=== PATIENT | female | born 1935 | race Caucasian/White ===

== ENCOUNTER 2020-05-03 13:54 | Outpatient (REF) | payer MEDICARE, SELFPAY ==
[2020-05-03 15:13] LABS: Alanine Aminotransferase 11 U/L (0-31); Anion Gap 15 (12-20); Blood Urea Nitrogen 27 mg/dL (9-16); Carbon Dioxide 27 mmol/L (22-29); Chloride 104 mmol/L (96-108); Estimated Glomerular Filt Rate 49; Potassium 3.9 mmol/L (3.3-5.1); Sodium 142 mmol/L (135-145)
== END 2020-05-03 13:55 | disposition home or self-care (01) ==
LOC: HO.10HDL 13:54
PROVIDERS: Visit Provider Family Medicine
DX: I10 Essential (primary) hypertension (principal); E78.00 Pure hypercholesterolemia, unspecified; Z79.899 Other long term (current) drug therapy
CPT/HCPCS: 36415; 80051; 82550; 82565; 84460; 84520

== ENCOUNTER 2021-11-09 12:51 | Outpatient (REF) | payer MEDICARE, SELFPAY ==
[2021-11-09 14:31] LABS: Alanine Aminotransferase 11 U/L (0-31); Anion Gap 14 (12-20); Aspartate Amino Transferase 16 U/L (5-31); Blood Urea Nitrogen 18 mg/dL (9-16); Carbon Dioxide 29 mmol/L (22-29); Chloride 103 mmol/L (96-108); Estimated Glomerular Filt Rate 51; Potassium 3.9 mmol/L (3.3-5.1); Sodium 142 mmol/L (135-145)
[2021-11-15 09:17] LABS: Transglutaminase Ab IgG <1.0 U/mL; Transglutaminase IgA <1.0 U/mL
== END 2021-11-09 12:52 | disposition home or self-care (01) ==
LOC: HO.10HDL 12:51
PROVIDERS: Visit Provider Family Medicine
DX: I10 Essential (primary) hypertension (principal); E78.00 Pure hypercholesterolemia, unspecified; Z79.899 Other long term (current) drug therapy; Z83.79 Family history of other diseases of the digestive system
CPT/HCPCS: 36415; 80051; 82550; 82565; 84450; 84460; 84520; 86364

== ENCOUNTER → 2022-03-22 13:21 | Outpatient (REF) | payer MEDICARE, SELFPAY ==
--- NOTE | 2022-03-22 13:39 | CA_ITS ---
Transthoracic Echocardiogram Patient (Last, First, Middle): Kaylah Mccabe E Gender: Female Date of : 1935 Age: 86 Procedure Date: 03/22/2022 Procedure Type: Transthoracic Echocardiogram Location: OP Height: 162.56 cm Weight: 58.97 kg BSA: 1.63 m2 Heart Rate: 69 bpm Load Out Supervisor: MIMI Referring MD: Skyler Quintero MD Risk Adjustment Specialist: Chas Burnette MD Symptoms: MURMUR VENT PREMATURE DEPOLARIZATION Study Quality: Adequate ECG Rhythm: Sinus Conclusions: - 1. Normal LV systolic function with grade 1 diastolic dysfunction 2. Normal cardiac valvular Dopplers 3. Upper limits normal RV systolic pressure 4. No gross pericardial effusion Findings Left Ventricle Normal left ventricular size, thickness, and systolic function. The visually estimated ejection fraction is between 55-60%. Regional wall motion abnormalities can not be excluded due to suboptimal endocardial definition. Spectral Doppler is indicative of an impaired relaxation filling pattern. E/E prime ratio is <8, consistent with normal filling pressures. Evidence suggests grade I (mild) diastolic dysfunction. Right Ventricle Normal right ventricular cavity size and systolic function. Atria The left atrium is normal in size. There is lipomatous hypertrophy of the interatrial septum. There is a mobile atrial septum noted. There is no evidence of interatrial shunt. The right atrium is normal in size. Aortic Valve The aortic valve structure and function is likely normal. There is no aortic valve stenosis. There is no aortic valve regurgitation. Mitral Valve Likely normal mitral valve structure and function. There is trace mitral valve regurgitation. There is no mitral valve stenosis. Pulmonic Valve The pulmonic valve was not well visualized. Tricuspid Valve Likely normal tricuspid valve structure and function. There is mild tricuspid valve regurgitation. There is no evidence of pulmonary hypertension. Great Vessels The aorta was not well visualized. The pulmonary artery was not well visualized. Venous The inferior vena cava is normal in size and collapses greater than 50% with inspiration. Pericardium/Pleural There is no evidence of pericardial effusion. Prior Study Comparison No prior study available for comparison. Measurements 2D Linear Measurements IVSd: 0.78 0.6-0.9/0.6-1.0 cm LVIDd: 3.36 3.9-5.3/4.2-5.9 cm LVIDd Index: 2.06 2.4-3.2/2.2-3.1 cm/m2 LVIDs: 2.12 2.0-3.6 cm LVPWd: 0.64 0.7-1.1 cm LA Diam: 3.40 2.7-3.8/3.0-4.0 cm LAIDs Index: 2.09 1.5-2.3 cm/m2 LV Mass: 73.99 67-162/88-224 g LV Mass Index: 45.39 43-95/49-115 g/m2 LVOT Diam: 1.90 3.0+(-)1.3 cm 2D Systolic Function EF 4C: 53.90 >55% EF 2C: 53.00 >55% Mitral Valve MV Pk E: 0.62 MV PK A: 1.02 MV Decel Time: 266.00 E/A: 0.60 E'Lateral: 5.00 E'Medial: 3.59 E/E' Med: 17.30 E/E' Lat: 12.40 PHT: 78.00 MVA PHT: 2.82 Decel Callahan: 2.34 Aortic Valve AoV Pk Matthew: 1.29 AoV Pk Grad: 7.00 MARLIN: 2.55 LVOT LVOT Pk Matthew: 1.16 LVOT Mn Matthew: 0.78 LVOT VTI: 0.22 LVOT Pk Grad: 5.00 LVOT Mn Grad: 3.00 LVOT Diam: 1.90 LVOT Area: 2.84 Diastolic Function MV Pk E: 0.62 MV Pk A: 1.02 E/A: 0.60 E'Medial: 3.59 E/E' Med: 17.30 E' Laterial: 5.00 E/E' Lat: 12.40 Right Ventricle TAPSE (mm): 21.10 TVS' Matthew: 11.60 Tricuspid Valve TR Pk Matthew: 2.91 TR Pk Grad: 34.00 RA Press: 3.00 RVSP: 37.00 Great Vessels Aorta Sinus of Valsalva: 3.20 2.0-3.5 cm Ao Asc: 3.10 2.1-3.4 cm Pulmonary Valve PV Pk Matthew: 0.98 Peak PV Grad: 4.00 Updated in Other Vendor System with Status of Final Chas Burnette MD electronically signed on 03/22/2022 5:04:50 PM with status of Final
== END ==
LOC: HO.CARD 13:21
PROVIDERS: PCP Family Medicine; Visit Provider Family Medicine
DX: I49.3 Ventricular premature depolarization (principal); R01.1 Cardiac murmur, unspecified
CPT/HCPCS: 93306

== ENCOUNTER 2022-09-19 13:44 | Outpatient (REF) | payer MEDICARE, SELFPAY ==
[2022-09-19 16:14] LABS: Alanine Aminotransferase 11 U/L (0-31); Anion Gap 15 (12-20); Aspartate Amino Transferase 17 U/L (5-31); Carbon Dioxide 25 mmol/L (22-29); Chloride 105 mmol/L (96-108); Estimated Glomerular Filt Rate 50; Potassium 3.8 mmol/L (3.3-5.1); Sodium 141 mmol/L (135-145)
== END 2022-09-19 13:45 | disposition home or self-care (01) ==
LOC: HO.LAB 13:44
PROVIDERS: PCP Family Medicine; Visit Provider Family Medicine
DX: I10 Essential (primary) hypertension (principal); E78.00 Pure hypercholesterolemia, unspecified; Z79.899 Other long term (current) drug therapy
CPT/HCPCS: 36415; 80051; 82550; 82565; 84450; 84460

== ENCOUNTER 2023-05-09 12:36 | Outpatient (REF) | payer MEDICARE, SELFPAY ==
[2023-05-09 13:35] LABS: Alanine Aminotransferase 9 U/L (0-31); Anion Gap 13 (12-20); Aspartate Amino Transferase 14 U/L (5-31); Blood Urea Nitrogen 16 mg/dL (9-16); Carbon Dioxide 31 mmol/L (22-29); Chloride 104 mmol/L (96-108); Estimated Glomerular Filt Rate 51; Potassium 4.2 mmol/L (3.3-5.1); Sodium 144 mmol/L (135-145)
== END 2023-05-09 12:37 | disposition home or self-care (01) ==
LOC: HO.10HDL 12:36
PROVIDERS: Visit Provider Family Medicine
DX: I10 Essential (primary) hypertension (principal); E78.00 Pure hypercholesterolemia, unspecified; Z79.899 Other long term (current) drug therapy
CPT/HCPCS: 36415; 80051; 82550; 82565; 84450; 84460; 84520

== ENCOUNTER 2024-02-10 12:45 | Outpatient (REF) | payer MEDICARE, SELFPAY ==
[2024-02-10 14:37] LABS: Alanine Aminotransferase 13 U/L (0-31); Anion Gap 10 (12-20); Aspartate Amino Transferase 22 U/L (5-31); Blood Urea Nitrogen 22 mg/dL (9-16); Carbon Dioxide 30 mmol/L (22-29); Chloride 106 mmol/L (96-108); Estimated Glomerular Filt Rate 45; Potassium 4.2 mmol/L (3.3-5.1); Sodium 142 mmol/L (135-145)
== END 2024-02-10 12:46 | disposition home or self-care (01) ==
LOC: HO.LAB 12:45
PROVIDERS: PCP Family Medicine; Visit Provider Family Medicine
DX: I10 Essential (primary) hypertension (principal); E78.00 Pure hypercholesterolemia, unspecified; Z79.899 Other long term (current) drug therapy
CPT/HCPCS: 36415; 80051; 82550; 82565; 84450; 84460; 84520

== ENCOUNTER 2024-04-08 14:17 | Inpatient (IN) | payer MEDICARE, SELFPAY ==
--- NOTE | ~2024-04-08 | FL_ITS ---
EXAMINATION: FLUOROSCOPY GUIDANCE FOR NEEDLE PLACEMENT CLINICAL INFORMATION: right femoral IM nail retrograde COMPARISON: CT right femur 04/08/2024 TECHNIQUE: Fluoroscopy guidance was performed in the OR with 7 images obtained. 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 The oblique fracture mid to distal femur has been stabilized with lateral plate and screws. The fracture fragments are in alignment. 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 Stabilized mid to distal right oblique fracture with lateral metallic plate and screws in alignment. Electronically signed by: Silvestre Rogers MD 04/10/2024 07:06 AM [facility]
--- NOTE | ~2024-04-08 | CT_ITS ---
EXAMINATION: CT HEAD WITHOUT IV CONTRAST HISTORY: Fall. TECHNIQUE: Unenhanced helical CT of the head was performed per standard departmental protocol. Coronal and sagittal reformats of the head were also evaluated. One or more of the following techniques was used for dose reduction: Automated exposure control, adjustment of the mA and/or kV according to patient size, use of iterative reconstruction technique. DLP: 712.60 mGy-cm COMPARISON: There are no prior studies for comparison. FINDINGS: BRAIN: There is mild prominence of the ventricular system and cortical sulci, consistent with atrophy. Periventricular and subcortical white matter hypodensities are noted which are nonspecific, but often seen in the setting of small vessel ischemic disease. There is no mass effect or midline shift. No intra- or extra-axial fluid collections are identified. SINUSES: The visualized paranasal sinuses are clear. The mastoid air cells and middle ear cavities are well pneumatized. ORBITS: The visualized orbits are unremarkable. BONES/SOFT TISSUES: There is a right parietal scalp hematoma. The calvarium is intact. No suspicious lytic or sclerotic lesions. CT/CT head/brain wo IV con IMPRESSION: Right parietal scalp hematoma. No evidence of intracranial hemorrhage. Electronically signed by: Max Hurtado MD 04/08/2024 03:32 PM [facility]
--- NOTE | ~2024-04-08 | XR_ITS ---
EXAMINATION: XR KNEE 1-2 VIEWS RIGHT HISTORY: Pain, Cannot straighten, dislocation vs femur fx COMPARISON: There are no prior studies available for comparison. FINDINGS: A single lateral view of the right knee is submitted. Osseous mineralization is normal. There is a lucency in the distal femoral metaphysis which may represent a nondisplaced fracture. Evaluation is limited on this single view. The visualized portions of the joint spaces are preserved. There is calcification of the popliteal artery. XR/XR knee RT 2V IMPRESSION: Incomplete examination. Possible nondisplaced fracture of the distal femoral metaphysis. If the patient cannot tolerate additional plain films, CT is recommended. Electronically signed by: Max Hurtado MD 04/08/2024 03:15 PM [facility]
--- NOTE | ~2024-04-08 | CT_ITS ---
EXAMINATION: CT CERVICAL SPINE WITHOUT CONTRAST CLINICAL INFORMATION: Fall, neck pain COMPARISON: None available. TECHNIQUE: Spiral CT examination of the cervical spine was performed in axial plane without IV contrast. Sagittal, coronal, and thin section axial reformatted images were constructed from the axial data set. This CT examination was performed using dose optimization techniques as appropriate, variously including the following: *Automated exposure control *Adjustment of mA and/or kV according to patient size (this includes techniques or standardized protocols for targeted exams where dose is matched to indication/reason for exam; i.e. extremities or head) *Use of iterative reconstruction technique FINDINGS: There is diffuse osteopenia. There is a normal lordosis. There is a mild left convex scoliosis. No definite fracture, compression deformity, traumatic subluxation, or pathologic bone lesion. Minimal 2 mm degenerative anterolisthesis C4 on C5. Minimal 2 mm degenerative anterolisthesis C7 on T1. Severe disc degeneration C5-6 and C6-7. Multilevel degenerative facet changes present, with bony fusion of the facets spanning C3-C5 bilaterally. The craniocervical junction is intact and aligned. The C1-2 articulation is intact, alignment, with moderate to severe degenerative arthrosis present, with partially calcified dorsal pannus formation and ventral osteophytes. There is thinning of the anterior neural arch of C1 with pseudoarticulates with the dens. Dorsal disc osteophytic ridge complexes at C5-6 and C6-7 contribute to mild and probably moderate central canal narrowing. There is no prevertebral soft tissue abnormality. Mild left and moderate right carotid bulb calcification. There is a large low-attenuation cystic nodule in the left thyroid measuring 3.2 x 3.2 x 4.6 cm. There is a 7 mm right posterior peripherally calcified nodule. Additional subcentimeter nodule in the right lobe. Imaged lung apices demonstrate mild scarring apically, and centrilobular emphysematous changes. They are otherwise clear. CT/CT cervical spine wo IV con IMPRESSION: 1. No CT evidence of acute cervical spine fracture or injury. Osteopenia. 2. Degenerative findings as discussed. 3. Large cystic nodule in the left thyroid measuring 3.2 x 3.2 x 4.6 cm Electronically signed by: Jermain Hood MD 04/08/2024 03:39 PM [facility] [place]
--- NOTE | ~2024-04-08 | CT_ITS ---
CLINICAL HISTORY: clarification of fracture Exam: CT of the right femur without contrast Comparison: X-ray of the right knee from 04/08/2024. Findings: Acute comminuted distal femur fracture with multiple fracture lines involving the mid and distal diaphysis. Fracture is 5 cm distal to the tip of the femoral stem. No definite hardware loosening of the right hip arthroplasty hardware. Soft tissue swelling and hematoma include imaged quadriceps and about the distal femur fracture. Low bone mineralization suggested in the pelvis. Mild pelvis deformities including pubic rami appear old chronic. Severe osteoarthritis of the left hip. Femoral condyles and patella appear intact without acute fracture. Distal femur fracture lucency is 2 cm superior to the physis scar. Moderate to severe osteoarthritis of the right knee. Small to moderate effusion of the right knee. No displaced fracture of the imaged right tibia or imaged right fibula. Vascular calcifications noted. Impression: 1. Acute comminuted fracture of the mid and distal right femur. 2. [id number] osteoarthritis of the right knee. 3. No hardware loosening of the right hip arthroplasty hardware. This document has been electronically signed by: Navneet George MD on 04/08/2024 18:26:54
[2024-04-08 14:25] VITALS: BP 170/80; BP 187/87; PULSE 87; PULSE 90; RESP 18; TEMP 36.6; O2SAT 100; O2SAT 97; BMI 26.0
--- NOTE | 2024-04-08 14:44 | ED_ITS ---
HPI - Fall General Chief Complaint: Fall Stated Complaint: MECHANICAL FALL Time Seen by Provider: 04/08/24 14:29 Source: patient Mode of arrival: EMS History of Present Illness ED Provider: Missy [facility] Narrative: 88-year-old female who states that she suffered a mechanical fall while bringing in her garbage cans and fell onto her right side and thinks that she may have dislocated her right knee she denies any use of chronic anticoagulation and denies any head strike. Related Data Home Medications ?Medication ?Instructions ?Recorded ?Confirmed amlodipine 5 mg tablet 5 mg PO DAILY 04/08/24 04/08/24 atorvastatin 10 mg tablet 10 mg PO DAILY 04/08/24 hydrochlorothiazide 25 mg tablet 25 mg PO DAILY 04/08/24 lisinopril 40 mg tablet 40 mg PO DAILY 04/08/24 metoprolol succinate 50 mg 50 mg PO DAILY 04/08/24 tablet,extended release 24 hr Allergies Allergy/AdvReac Type Severity Reaction Status Date / Time azithromycin Allergy Unknown Verified 04/08/24 14:27 Review of Systems Review of Systems: Pertinent positives and negatives as stated in HPI PMFSH Past Medical History Source: nursing notes reviewed Social History Social History Smoked in Last 30 Days: No Use of substances other than those prescribed or required for medical reasons: No Advance Directives: No Advance Directives Information Provided: Yes Do you have a plan to hurt others: No Plan Physical Exam Vital Signs: Vital Signs: Last Vital Signs Temp 97.8 F 04/08/24 14:25 Pulse 87 04/08/24 14:25 Resp 18 04/08/24 14:25 BP 187/87 H 04/08/24 14:25 Pulse Ox 97 04/08/24 14:25 O2 Del Method Room Air 04/08/24 14:25 BMI result Body Mass Index 26.0 VITAL SIGNS: Reviewed. GENERAL: Well developed, well nourished, in no acute distress. HEAD: Normocephalic/atraumatic EYES: PERRLA, EOMI EARS: Ext canals without abnormality NOSE: Nares patent bilateral OROPHARYNX: no oral lesions noted, posterior pharynx clear NECK: C-collar is in place without midline cervical spine tenderness to palpation or step-offs noted. LUNGS: Normal breath sounds. No adventitious sounds or accessory muscle use. SpO2<97> CARDIOVASCULAR: Regular rate and rhythm without noted murmurs ABDOMEN: Soft, non-tender, non-distended with bowel sounds. PELVIS: Stable, nontender MUSCULOSKELETAL: No tenderness, deformities, or effusions noted on gross inspection. EXTREMITIES: No cyanosis, clubbing or edema. RIGHT LOWER EXTREMITY: There is noted contusion/hematoma to the lateral aspect of the right tibia, palpation over the tibia itself does not elicit any pain and there is no noted deformity, there are palpable DP/PT with good sensation. Patella appears to be midline and no pain on palpation, no pain on palpation over the tibial plateau or over the MCL, there is mild tenderness to palpation over the LCL area but most significant at the distal femur/suprapatellar without palpable effusion. SKIN: Inspection of the skin reveals no rashes NEUROLOGIC: Alert and oriented x 4. Strength and sensation to light touch were grossly intact x 4. Medications Administered Discontinued Medications Generic Name Dose Route Start Last Admin Trade Name Freq PRN Reason Stop Dose Admin Acetaminophen 1,000 mg in 100 mls @ 400 mls/hr 04/08/24 14:36 04/08/24 15:16 Ofirmev IV 04/08/24 14:50 400 mls/hr ONCE ONE Administration Ketorolac Tromethamine 15 mg 04/08/24 14:36 04/08/24 15:17 Ketorolac Tromethamine 30 Mg/Ml Vial IVPUSH 04/08/24 14:37 15 mg ONCE ONE Administration Medical Decision Making Medical Decision Making MDM Narrative: 88-year-old female with history and clinical presentation, DD DX: Will rule out intracranial hemorrhage/mass effect or cervical spine fracture/subluxation. Will also rule out possibility of femur dislocation versus distal fracture, no clinical suspicion at this time for tibial fracture but will evaluate, patient is otherwise neurovascularly intact. INTERVENTION: IV insertion, IV Tylenol/IV Toradol. X-ray significant for distal right femur fracture, patient informed of results, orthopedics was called and informed of results. Orthopedics plans on surgery tomorrow. Obtaining lab work and placing Cruz catheter for patient ease. 1539: CT scan of the head negative for intracranial hemorrhage or mass effect and otherwise my interpretation is in agreement with radiology's impression. Will discuss with inpatient hospitalist for admission. 1558: CT C-spine is negative for fracture or subluxation and otherwise my interpretation is in agreement with radiology's impression. I did clear the C- collar. Labs are pending and I discussed case with hospitalist. Differential Diagnosis Differential Diagnoses: The differential diagnosis associated with the presentation includes See above Admission/Observation Consideration of admission/observation: Escalation of care including admission/observation considered See above Consult Healthcare Provider Management of the patient was discussed with: Hospitalist and Spool Maker See above Lab Data MDM Lab Attestation statement: I reviewed the patient's lab results. See above Independent Interpretation I performed an independent interpretation of an: Plain X-Ray and CT Scan Interpretation: See above Chronic Conditions Patient?s care impacted by: Hypertension Discharge Plan Discharge Clinical Impression: Fracture of distal end of right femur, Hematoma of right parietal scalp, Fall Patient Disposition: Admitted As Inpatient Print Language: Mozambican
[2024-04-08] MEDS: Acetaminophen 1,000 MG/100 ML PIGGYBACK 400 MG IV (15:16)
[2024-04-08] MEDS: Ketorolac Tromethamine 30 MG/ML VIAL 15 MG IVPUSH (15:17)
--- NOTE | 2024-04-08 15:22 | P.HPOP_ITS ---
History of Present Illness History of Present Illness Date of Service: 04/08/24 Chief complaint: MECHANICAL FALL Narrative: Kaylah Mccabe is a 88 year old female with a PMH of HTN who presented to the ED after sustaining a mechanical fall while trying to move her trash bin. She landed on her right side and felt immediate pain around her knee. She was unable to ambulate and was brought to the ED via EMS. While in the ED she had an x-ray obtained and was found to have a right distal femur fracture. She will be admitted to the medicine service and orthopedics was consulted for further evaluation and treatment. Review of Systems 2 Review of Systems: Yes all other systems are reviewed and are negative PMFSH Social History Social History Smoked in Last 30 Days: No Use of substances other than those prescribed or required for medical reasons: No Do you have a plan to hurt others: No Plan Meds Allergies Allergy/AdvReac Type Severity Reaction Status Date / Time azithromycin Allergy Unknown Verified 04/08/24 14:27 Physical Exam Vital Signs: Vital Signs: Last Vital Signs Temp 97.8 F 04/08/24 14:25 Pulse 87 04/08/24 14:25 Resp 18 04/08/24 14:25 BP 187/87 H 04/08/24 14:25 Pulse Ox 97 04/08/24 14:25 O2 Del Method Room Air 04/08/24 14:25 BMI result Body Mass Index 26.0 Const: General: cooperative, healthy appearing and no acute distress Resp: Effort & Inspection: normal respiratory effort and able to speak in complete sentences Cardio: Rate: regular rate Peripheral pulses: Peripheral pulses 2+ throughout GI: Palpation (GI): Soft to palpation Skin: Lesions: no lesions Rashes: no rashes Extrem: Other: Right knee held in flexion. Superficial abrasion on the distal anterior tibia. Sensation intact. Results Labs Labs: All other labs normal. Assessment and Plan (1) Fracture of distal end of right femur: Status: Acute I discussed the case with Dr. Kelly and explained the extent of the injury to the patient and options available which include surgical intervention. I explained the procedure in detail along with the length of recovery and rehab course. I explained the risk, benefits and alternatives. Risk including, but not limited to infection, blood clots, bleeding, non union or malunion and ner ve/tissue damage to surrounding areas. I answered all their questions and with their understanding they have consented to move forward with Operative Fixation of the right distal femur. The patient will be T&S, and NPO after midnight. Medicine to obtain clearance. Quality Stroke Does the patient have a stroke diagnosis?: No VTE Prior VTE?: No VTE Risk Level:: Medical - moderate - high VTE Device Contraindication: N/A - Device Ordered VTE Drug Contraindication: N/A - Med Ordered Procedures Date of Service Date of Service: 04/08/24
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
[2024-04-08 16:29] LABS: MANUAL DIFF FLAG NO
[2024-04-08 16:36] LABS: Basophils Percent Auto 0.4 % (0-2); Eosinophils Absolute Auto 0.1 X10*3/uL (0.0-0.4); Eosinophils Percent Auto 0.6 % (0-4); Hematocrit 30.4 % (37.0-47.0); Hemoglobin 11.2 g/dl (12.0-16.0); Imm Gran Abs Auto 0.05 X10*3/uL (0.00-0.03); Imm Gran Pct Auto 0.4 % (0.0-0.4); Lymphocytes Percent Auto 8.9 % (20-40); Mean Corpuscular HGB Conc 36.8 g/dl (31.0-35.0); Mean Corpuscular Hemoglobin 36.5 pg (27.0-33.0); Mean Platelet Volume 8.8 fL (9.4-12.3); Monocytes Absolute Auto 0.6 X10*3/uL (0.1-1.2); Monocytes Percent Auto 5.1 % (2-11); Neutrophils Absolute Auto 9.5 x10*3/uL (2.0-8.3); Neutrophils Percent Auto 84.6 % (45-73); Platelet Count 247 X10*3/uL (160-400); Red Blood Count 3.07 X10*6/uL (4.20-5.50); Red Cell Distribution Width 15.3 % (11.0-16.0); White Blood Count 11.3 X10*3/uL (4.8-10.8)
[2024-04-08 16:46] LABS: Alanine Aminotransferase 11 U/L (0-31); Albumin Level 3.9 g/dL (3.5-5.0); Alkaline Phosphatase 61 U/L (39-117); Anion Gap 11 (12-20); Aspartate Amino Transferase 21 U/L (5-31); Bilirubin Total 0.4 mg/dL (0.0-1.0); Blood Urea Nitrogen 26 mg/dL (9-16); Calcium 8.5 mg/dL (8.4-10.2); Carbon Dioxide 27 mmol/L (22-29); Chloride 104 mmol/L (96-108); Creatinine Clr Calc Pharmacy 41.1; Estimated Glomerular Filt Rate > 60; Glucose Random 117 mg/dL (60-115); Potassium 3.9 mmol/L (3.3-5.1); Sodium 138 mmol/L (135-145); Total Protein 6.6 g/dL (6.5-8.0)
--- NOTE | 2024-04-08 17:13 | PHA.MEDREC ---
Addendum entered by Aleksandar Calderon [facility] 04/08/24 17:23: Med rec reviewed Original Note: Pharmacy Consult ? Medication Reconciliation Pharmacy has completed the medication reconciliation. Spoke to patient to confirm med list. Patient was able to name all her medication, doses and when she takes them. Everything patient named matched claims. Patient states she last took her daytime medications this morning and her evening medications was last night.
[2024-04-08 17:23] VITALS: BP 167/69; PULSE 80; RESP 18; TEMP 36.8; O2SAT 96
--- OUTSIDE RECORDS SUMMARY | 2024-04-08 17:25 | XMS_ITS | Continuity of Care Document ---
Author Organization [facility] Address [address] [place] [address] Phone Care Team Providers Care Web Page Developer Name Role Phone Corbin Rogers MD Unavailable Unavailable Allergies, Adverse Reactions, Alerts Substance Reaction Status Criticality No Known Allergies Active No Inform ation Medications Medication Instructions Dosage Effective Dates (start - stop) Status Comments metoprolol tartrate 50 mg tablet take 1 tablet by oral route 2 times every day with meals 50 MG - Active amlodipine 5 mg tablet take 1 tablet by oral route every day 5 MG - Active lisinopril 40 mg tablet take 1 tablet by oral route every day 40 MG - Active CoQ-10 30 mg capsule - Active Lipitor 10 mg tablet take 1 tablet by or al route every day 10 MG - Active turmeric root extract 500 mg capsule - Active Appearex 2,500 mcg tablet - Active multivitamin tablet take 1 capsule by oral route every day 1 capsule - Active aspirin 81 mg tablet,delayed release take 1 tablet by oral route every day 81 MG - Active Procedures Procedure Date Injection Intravitreal Pharmac 20 OCT-SCODI Posterior Retina Lucentis Syr Est Pt Comprehensive Eye Exam 0 Injection Intravitreal Pharmac 20 OCT-SCODI Posterior Retina Lucentis Syr Est Pt Comprehensive Eye Exam 0 Injection Intravitreal Pharmac 19 OCT-SCODI Posterior Retina Lucentis Syr Est Pt Comprehensive Eye Exam 9 OCT-SCODI Posterior Retina Est Pt Comprehensive Eye Exam 9 B Scan Injection Intravitreal Pharmac 19 OCT-SCODI Posterior Retina Ophthalmoscopy Initial Ophthalmoscopy Initial Lucentis Syr Est Pt Comprehensive Eye Exam 9 Injection Intravitreal Pharmac 17 Ranibizumab 0.1 MG Lucentis Fluorescein Angiography Fundus Photography OCT-SCODI Posterior Retina Est Pt Comprehensive Eye Exam 7 Injection Intravitreal Pharmac 16 OCT-SCODI Posterior Retina Ranibizumab 0.1 MG Injection Intravitreal Pharmac 16 Ranibizumab 0.1 MG OCT-SCODI Posterior Retina Est Pt Intermediate Eye Exam Injection Intravitreal Pharmac 16 Ranibizumab 0.1 MG Fluorescein Angiography Fluorescein Angiography Fundus Photography Est Pt Comprehensive Eye Exam 6 OCT-SCODI Posterior Retina New Pt Intermediate Eye Exam Advance Directives Directive Yes / No Effective Date File Name No Information Encounters Encounter Description Practice Location Reason(s) For Visit Diagnoses Date Provider Providers Copied on Encounter [facility] , [address] [place] [address], [id number], [place] tel:[phone] [facility] [place] No Information 0 Sue Alaniz. [facility] [place], [place], [id number] , [place]. tel: [phone] [facility] , [facility] [place], [place], [id number], [place] tel:[phone] [facility] [place] BRVO (chief complaint) Trib rtnl vein occlusion, left eye, with macular edemaPuckering of macula, bilateral May-0 -202 0 Sue Corbin. [address] [place], [place], [id number] , [place]. tel:[phone] Referring Provider: Corbin Stormi, [address], [place], [address] . tel:[phone] [facility] , [address], [place], [place], [id number], [place] tel:[phone] [facility] [place] BRVO w/ME (chief complaint) Trib rtnl vein occlusion, left eye, with macular edemaPuckering of macula, bilateral 0 Sue Alaniz. [address], [place], [place], [id number] , [place]. tel: [phone] Referring Provider: Corbin Rogers, [address], [place], [address] . tel:[phone] [facility] , [address], [place], [place], [id number], [place] tel:[phone] [facility] [place] BRVO (chief complaint) Trib rtnl vein occlusion, left eye, with macular edemaPuckering of macula, bilateral 9 Sue Alaniz. [address], [place], [place], [id number] , [place]. tel: [phone] Referring Provider: Corbin Sue, [address], [place], [address] . tel:[phone] [facility] , [address], [place], [place], [id number], [place] tel:[phone] [place] Retina (chief complaint) Tributary (branch) retinal vein occlusion, left eye, stable Jun-0 2201 9 uSe Alaniz. [address], [place], [place], [id number] , [place]. tel: [phone] Referring Provider: Corbin Sue, [address], [place], [address] . tel:[phone] [facility] , [address], [place], [place], [id number], [place] tel:[phone] [facility] [place] BRVO (chief complaint) Trib rtnl vein occlusion, left eye, with macular edemaPuckering of macula, bilateralBenign neoplasm of right choroid Mar-0 1-201 9 Sue Alaniz. [address], [place], [place], [id number] , [place]. tel: [phone] Referring Provider: Corbin Rogers, [address], [place], [address] . tel:[phone] [facility] , [address], [place], [place], [id number], [place] tel:[phone] [facility] [place] BRVO follow up (chief complaint) Trib rtnl vein occlusion, left eye, with macular edema Mar-2 3-201 7 Sue Alaniz. [address], [place], [place], [id number] , [place]. tel: [phone] Referring Provider: Corbin Rogers, [address], [place], [address] . tel:[phone] [facility] , [address], [place], [place], [id number], [place] tel:[phone] [facility] [place] BRVO (chief complaint) Trib rtnl vein occlusion, left eye, with macular edema Mar-1 6-201 7 Sue Alaniz. [address], [place], [place], [id number] , [place]. tel: [phone] Referring Provider: Corbin Sue, [address], [place], [address] . tel:[phone] [facility] , [address], [place], [place], [id number], [place] tel:[phone] [facility] [place] CME (chief complaint) Cystoid macular degeneration, left eyeTributary (branch) retinal vein occlusion, left eye Mar-3 0-201 6 Sue Alaniz. [address], [place], [place], [id number] , [place]. tel: [phone] Referring Provider: Corbinharsha Rogers, [address], [place], [address] . tel:[phone] [facility] , [address], [place], [place], [id number], [place] tel:[phone] [facility] [place] Cystoid Mac Degen (chief complaint) Cystoid macular degeneration, left eyeTributary (branch) retinal vein occlusion, left eye Mar-0 2-201 6 Sue Alaniz. [address], [place], [place], [id number] , [place]. tel: [phone] Referring Provider: Corbin Rogers, [address], [place], [address] . tel:[phone] [facility] , [address], [id number], tel:[phone] [facility] [place] BRVO (chief complaint) Cystoid macular degeneration, left eyeTributary (branch) retinal vein occlusion, left eye Feb-1 8-201 6 Sue Alaniz. [address], [place], [place], [id number] , [place]. tel: [phone] Referring Provider: Corbin Rogers, [address], [place], [address] . tel:[phone] [facility] , [address], [place], [place], [id number], [place] tel:[phone] [facility] [place] CME (chief complaint) Cystoid macular degeneration, left eyeTributary (branch) retinal vein occlusion, left eye Feb-0 3-201 6 Sue Alaniz. [address], [place], [place], [id number] , [place]. tel: [phone] Referring Provider: Corbin Rogers, [address], [place], [address] . tel:[phone] [facility] , [address], [place], [place], [id number], tel:[phone] [facility] [place] Retinal evaluation (chief complaint) Cystoid macular degeneration, left eyeTributary (branch) retinal vein occlusion, left eyePuckering of macula, right eye 6 Sue Alaniz. [address] [place], [place], [id number] , [place]. tel:[phone] Referring Provider: Dinah Moon, [address] [place], [address] . tel:[phone] [facility] , [address] [place], [place], [id number], [place] tel:[phone] [facility] [place] Blurry vision (chief complaint) Tributary (branch) retinal vein occlusion, left eye 6 Long OD Dinah. [address] [place] [address], [id number] , [place]. tel:[phone] Referring Provider: Dinah Moon, [address] [place], [address] . tel:[phone] Family History Family Member Type Diagnosis Age At Onset Family h/o Problem (finding) Alcoholism Family h/o Problem (finding) Melanoma-Rt. o hm 2004- LUNG METS. 2005- Lt. Lobotomy Family h/o Problem (finding) Cancer Immunizations Vaccine Date Status Comments Flu (split) (3 yrs or older) administered Source: Other Provider Flu (split) (3 yrs or older) administered Source: Other Provider Flu (split) (3 yrs or older) administered Source: Other Provider Payers Payer name Insurance type Covered libertarian ID Authorroberto carlosa tichristian(s) Medicare Traditional MB [id number] BCBS Supplemental CI [id number] Social History Type Description Quantity Date Captured Comments Alcohol Use Details Unknown Caffeine Use Details Unknown Tobacco Use Status No Information Smoking Status No Information Sex Female Chief Complaint And Reason For Visit No Information Reason For Referral Reason For Referral No Information Plan Of Treatment Date Type Action Status Patient Education Learning About Retinal Vein Occlusion completed Patient Education Learning About Retinal Vein Occlusion completed Patient Education Learning About Retinal Vein Occlusion completed Patient Education Learning About Retinal Vein Occlusion completed Patient Education Learning About Retinal Vein Occlusion completed Future Order: Radiology Order OC T [place] ([id number]), Collected on: Ordered Future Order: Radiology Order OC T [place] ([id number]), Collected on: Ordered Future Order: Radiology Order OC T [place] ([id number]), Collected on: Ordered Future Order: Radiology Order OC T [place] ([id number]), Collected on: Ordered Future Order: Radiology Order OC T [place] ([id number]), Collected on: Ordered History Of Present Illness Encounter Date Complaint History Of Prese nt Illness BRVO The 83 year old female presents for evaluation of BRVO in the OU. Pt sts no new concerns with VA OU since last exam. Returns for IVL OS DIL OU OCT OU BRVO w/ME The 83 year old female presents for evaluation of BRVO w/ME in the OS. Pt here today for RCI - IVL OS, OCT OU, DIL OU. Pt denies change in VA. Pt denies flashes, floaters, and pain OU. BRVO The 83 year old female presents for evaluation of BRVO in the OS. The symptom is constant. The condition is mild. Poss IVL OS with OCT OU. Pt states no change in VA and no pain. Retina The 82 year old female presents for evaluation of Retina in the OU. Pt is here for IVL OS, OCT OS, Dil OS, RCI today. Pt states OS is a little blurry, denies flashes of light, floaters, and eye pain. BRVO The 82 year old female presents for evaluation of BRVO in the OS. Hx of BRVO w/ ME OS. Pt was under the care of Dr. Skyler Betancourt for BRVO w/ ME OS, pt last received a injection on 12/23/2017 with AARON, pt was unsure why AARON was used over OSEI. Pt reports no noticeable changes in vision OU. Pt denies new floaters and flashes of lights OU. Hx of CN OD. Verbal order MAC OCT OU and B-scan OD. BRVO follow up The 80 year old female presents for evaluation of BRVO follow up in the OS. IVL OS. Pt states no change in vision or problems. BRVO The 80 year old female presents for evaluation of BRVO in the OS. Pt here for OCT MAC OU and FA OS>OD. Pt states she has seen Doctors [place] and records have been sent to us. Pt states she has not needed any injections since her visit here. Pt also reports she had her routine exam in Jan 2016 and bought new gls. Pt has not had any vision changes or new problems. CME The 79 year old female presents for evaluation of CME in the OS. IVL Tx OS #3 of 3. Cystoid Mac Degen The 79 year ol d female presents for evaluation of Cystoid Mac Degen in the OS. IVL OS only Tx # 2 of 3. Pt states no changes to va since last visit. Floaters OU very seldom x yrs, stable. no flashes, pain. BRVO The 79 year old female presents for evaluation of (cystoid macular degeneration) followup in the OS. Pt is here today for RFL- safety ck- with OCT OS/DIL OS. Pt states no change in vision. CME The 79 year old female presents for evaluation of CME in the OS. IVL/AARON OS injection #1 of 3. Pt states VA has been stable. Retinal evaluation The 79 year o ld female presents for evaluation of Retinal evaluation in the OU. It started about 3 day(s) ago. The symptom is constant. Pt noticed OS blurry in dist x 3 days. Va has improved x 1 day. No pain/discomfort. Pt c/o floater OS x yrs sm greyish intermittent med size, stable. No flashes. Pt has ams grid at home monitors regulary. Pt goes [place] in June. OCT per Dr. Rogers. Blurry vision The 79 year old female presents for evaluation of Blurry vision in the OS. It started about 1 day(s) ago. Onset was sudden. Pt denies new floaters, flashes of light, eyepain, and KING. Denies changes in VA in the OD. Pt denies pain OD. Functional Status Date Functional Assessmen t No Information Instructions Date Instruction Additional Infor emeka Return in 06/[address] Rogers for IVL Sample OS OCT OU DIL OU RCI. 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, left eye, with macular edema Impression/Plan 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, bilateral Impression/Plan 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, left eye, with macular edema Return in the Fall w shreya Rogers for RCI, OCT OU, DIL OU, IVL OS (TT) 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 Cont IVLq4w with Dr. Betancourt (DC) in 1mo (last inj 05/31/16). F/u Dr. Rogers prn when pt returns to [place]. 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 Patient to sign medical release form to take records with her today. Recommend patient to follow up with Dr. Betancourt in 1 month from today for ongoing care and tx. 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 RBA's GIOVANNY w/pt will proceed with tx with IVL OS today. 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 Pt states has gone a year without tx. CME has returned OS on todays exam. Recommend restart tx again. IVL OS. Pt goes back up [place] June 13, 2016, will send records at that time for pt to have re-eval and tx [place]. IVL x 1 then tx records to [facility]. 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 RBA's GIOVANNY w/pt will proceed with tx today. IVL OS Tx # 3 of 3 today Related to Cystoid macular degeneration, left eye Impression/Plan - Pt leaving next to go [place], pt advised to see Dr. Wolf hall within 1 month to continue tx of injections up [place]. 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 Rogers for IVL OS #3 of 3 Related to Cystoid macular degeneration, left eye Impression/Plan - BR VO w/CME: GIOVANNY w/pt dx and tx plan. RBA's GIOVANNY w/pt will proceed with tx today. IVL OS #2 of 3 today. Related to Cystoid macular degeneration, left eye Follow up - Return i n [address] Rogers for IVL OS #3 of 3 Related to Cystoid macular degeneration, left eye Impression/Plan - See plan above . 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 Rogers for IVL OS #2 of 3 Related to Cystoid macular degeneration, left eye Impression/Plan - Di scussed diagnosis in detail with patient. Discussed risks and benefits and patient understands. No change to current treatment. Pt elects to proceed with IVL OS tx #1 of 3 today. Related to Cystoid macular degeneration, left eye Follow up - Return i n [address] Rogers for IVL OS #2 of 3 Related to Cystoid macular degeneration, left eye Impression/Plan - See plan above . 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 No treatment is required at this time. Will continue to observe condition and or symptoms. Related to Puckering of macula, right eye Impression/Plan - See plan above . 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 Rogers for IVL/AARON OS tx #1 of 3Return in [address] Rogers for RFL (Safety Check), OCT OS, DIL OS. Related to Cystoid macular degeneration, left eye Impression/Plan - A/ P: Heme Retinal Vein Occlusion OS. Pt has hx of HTN. Faxing PCP. Pt to see PCP LUANA for work up, Carotid Ultrasound, BP, BS, CBC, CMP, lipid panel. Rec starting tx. Rec IVL q4wx3 OS. Pt to return 3 weeks after #3 for RFL, OCT OU. Pt elects to proceed with tx plan, but pt wants to see PCP first. Rec pt have IVL tx within 1 week. Advised pt this should not be put off. Pt understands. Related to Cystoid macular degeneration, left eye Return in 2-3 days w shreya Rogers for Retinal Consult. 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 BP control needed, pt ed to follow up STAT with PCP. OCT Mac today. Retinal consult indicated. 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 Rogers for Retinal Consult. 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
[2024-04-08] MEDS: Morphine Sulfate 4 MG/ML CARTRIDGE 2 MG IVPUSH ×2 (17:46→23:42)
--- NOTE | 2024-04-08 17:59 | PC.NURSE ---
Pt medicated with IV Morphine per MAY for reports 10 pain to RLE. Pt in need of che catheter placement. Pt will be given time for morphine to work prior to che placement--Pt in agreement with this plan.
[2024-04-08 19:38] VITALS: BP 144/57; PULSE 74
[2024-04-08] MEDS: Morphine Sulfate 2 MG/ML CARTRIDGE 1 MG IVPUSH (19:38)
--- NOTE | 2024-04-08 20:14 | PC.NURSE ---
15F che placed at this time, pt tolerated well. 200ml of yellow urine voided. pt assisted with comfort of leg at this time.
[2024-04-08 21:41] VITALS: BP 158/69; PULSE 74; RESP 16; TEMP 36.1; O2SAT 98
[2024-04-08 22:03] VITALS: BP 158/69
[2024-04-08] MEDS: lisinopriL 40 MG TABLET PO (22:03)
[2024-04-08 22:04] VITALS: BP 158/69; PULSE 75
[2024-04-08] MEDS: Metoprolol Succinate ER 50 MG TAB.ER.24H PO (22:04)
[2024-04-08] MEDS: Atorvastatin Calcium 10 MG TABLET PO (23:03)
[2024-04-09] VITALS (13 sets, daily range): BP systolic 106–154; BP diastolic 34–70; PULSE 71–94; RESP 16–20; TEMP 36.1–37.3; O2SAT 95–97
--- NOTE | 2024-04-09 | ECG_ITS ---
Test Reason : pre op Blood Pressure : */* mmHG Vent. Rate : 74 BPM Atrial Rate : 277 BPM P-R Int : * ms QRS Dur : 98 ms QT Int : 408 ms P-R-T Axes : 53 -43 37 degrees QTcB Int : 452 ms Atrial flutter with variable A-V block with premature ventricular or aberrantly conducted complexes Left axis deviation Moderate voltage criteria for LVH, may be normal variant ( R in aVL , Hominy product ) Septal infarct , age undetermined Abnormal ECG When compared with ECG of 21-Feb-2002 11:06, Atrial flutter has replaced Sinus rhythm QRS axis Shifted left Referred By: Efren Blackburn Electronically Signed By:
[2024-04-09] MEDS: Morphine Sulfate 4 MG/ML CARTRIDGE 2 MG IVPUSH ×3 (08:29→21:24)
[2024-04-09] MEDS: amLODIPine Besylate 5 MG TABLET PO (08:32)
[2024-04-09] MEDS: Multivitamin TABLET 1 TAB PO (08:32)
[2024-04-09] MEDS: 0.9 % Sodium Chloride Flush 3 ML SYRINGE IVFLUSH ×4 (08:49→23:48)
--- NOTE | 2024-04-09 09:08 | HO.WOUND ---
Wound Consult: Initial 88yr old?female admitted to [facility] [place] on 04[place]08/24 - See progress notes and H&P for detailed history.? Wound consult placed for right leonard wound.? Patient agreeable to assessment and photo documentation.? Patient reports the injury is from a fall outside resulting in her femur fracture set for Surgical repair later today. Right Leonard Etiology: Abrasion s/p fall at home outside Measurements: 2cm x 1cm x 0.1cm Wound Bed: two dried adherent scabs Drainage / Odor: None Edges: ? well defined [place] wound: intact slight bruising noted ? No Induration, Fluctuance or Warmth noted Pain: painful to whole leg given fracture Goals of Treatment: ? Foam dressing to allow for moist wound healing and protect from further injury Recommendations: 1. Turn and Reposition every 2 hours and as needed for patient comfort.? Use pillows or wedges to support off loading positions. 2. Off Load all bony prominences with use of pillows and heel boots if needed.? Apply Preventative foams where needed. ? 3. Monitor for incontinence and moisture control, use barrier creams when needed for prevention and treatment. 4. Provide adequate and supplemental nutrition.? 5. Order low air loss mattress. 6. When applicable maintain blood glucose levels per Providers order. 7. Right Leonard - Cleanse with NS moist gauze, apply skin prep to periwound. Cover with foam dressing. Change every 3 days. Re-consult wound care Nurse for wound deterioration or wound changes.
[2024-04-09] MEDS: ondansetron HCL 4 MG/2 ML VIAL IVPUSH (09:23)
--- NOTE | 2024-04-09 10:29 | P.PNIM_ITS ---
Subjective Subjective Date of Service: 04/09/24 Interval History: Follow-up on femur fracture on the right side, she slept well and pain was controlled by having spasmodic pain this morning. Physical Exam 2 Vital Signs: Vital Signs: Last Vital Signs Temp 98.7 F 04/09/24 07:04 Pulse 71 04/09/24 07:04 Resp 18 04/09/24 07:04 BP 143/62 H 04/09/24 08:32 Pulse Ox 95 04/09/24 07:04 O2 Del Method Room Air 04/09/24 07:04 BMI result Body Mass Index 26.0 Const: Other: General: AO X 3, no acute distress HEEnt; scalp hematoma Resp: CTA bilateral CVS: S1,S2,RRR GI: +BS, NT, no distention Skin: No rash Neuro: motor grossly intact Psych: appropriate affect Objective Data Active Medications Acetaminophen (Acetaminophen 325 Mg Tablet) 650 mg PO Q6H PRN PRN Reason: Pain, Mild 1-3,fever,headache Amlodipine Besylate (Amlodipine Besylate 5 Mg Tablet) 5 mg PO DAILY [facility]; Protocol Last Admin: 04/09/24 08:32 Dose: 5 mg Documented By: LAM Aspirin (Aspirin Enteric Coated 81 Mg Tablet.) 81 mg PO DAILY MARY GRACE Atorvastatin Calcium (Atorvastatin Calcium 10 Mg Tablet) 10 mg PO BEDTIME MARY GRACE Last Admin: 04/08/24 23:03 Dose: 10 mg Documented By: LILI Calcium Carbonate (Calcium Carbonate 750 Mg Tab.Chew) 750 mg PO Q4H PRN PRN Reason: Heartburn Hydrochlorothiazide (Hydrochlorothiazide 25 Mg Tablet) 25 mg PO DAILY [facility]; Protocol Last Admin: 04/09/24 09:21 Dose: Not Given Documented By: LAM Non-Admin Reason: dehydrated Cefazolin Sodium/Dextrose (Ancef) 2 gm in 50 mls @ 100 mls/hr IV PREOP ONE Stop: 04/09/24 16:10 Lisinopril (Lisinopril 40 Mg Tablet) 40 mg PO BEDTIME [facility]; Protocol Last Admin: 04/08/24 22:03 Dose: 40 mg Documented By: LILI Magnesium Hydroxide (Milk Of Magnesia 30 Ml Oral.Susp) 30 ml PO DAILY PRN PRN Reason: Constipation Melatonin (Melatonin 3 Mg Tablet) 6 mg PO BEDTIME PRN PRN Reason: Insomnia Metoprolol Succinate (Metoprolol Succinate Er 50 Mg Tab.Er.24h) 50 mg PO BEDTIME [facility]; Protocol Last Admin: 04/08/24 22:04 Dose: 50 mg Documented By: LILI Morphine Sulfate (Morphine Sulfate 4 Mg/Ml Cartridge) 2 mg IVPUSH Q4H PRN; Protocol PRN Reason: Pain, Severe (Pain Scale 7-10) Last Admin: 04/09/24 08:29 Dose: 2 mg Documented By: LAM Multivitamins/Vitamin C (Multivitamin Tablet) 1 tab PO DAILY [facility] Last Admin: 04/09/24 08:32 Dose: 1 tab Documented By: LAM Ondansetron HCl (Ondansetron Hcl 4 Mg/2 Ml Vial) 4 mg IVPUSH Q8H PRN PRN Reason: Nausea and Vomiting Last Admin: 04/09/24 09:23 Dose: 4 mg Documented By: LAM Polyethylene Glycol (Polyethylene Glycol 3350 17 Gm Powd.Pack) 17 gm PO DAILY PRN PRN Reason: Constipation Sodium Chloride (0.9 % Sodium Chloride Flush 3 Ml Syringe) 3 ml IVFLUSH QSHIFT [facility] Last Admin: 04/09/24 08:49 Dose: 3 ml Documented By: LAM Labs 04/08/24 16:23 04/08/24 16:23 Labs: Laboratory Results - last 24 hr 04/08/24 04/08/24 16:23 16:23 MCV 99.0 H MCH 36.5 H MCHC 36.8 H RDW 15.3 Plt Count 247 MPV 8.8 L Immature Gran % (Auto) 0.4 Neut % (Auto) 84.6 H Lymph % (Auto) 8.9 L [place] % (Auto) 5.1 Eos % (Auto) 0.6 Baso % (Auto) 0.4 Lymph # (Auto) 1.0 L [place] # (Auto) 0.6 Eos # (Auto) 0.1 Baso # (Auto) 0.0 Abs Immat Gran (auto) 0.05 H Absolute Neuts (auto) 9.5 H Absolute Nucleated RBC 0.000 Nucleated RBC % (auto) 0.0 Anion Gap 11 L Estim Creat Clear Calc 41.1 Estimated GFR > 60 Random Glucose 117 H Calcium 8.5 Total Bilirubin 0.4 AST 21 ALT 11 Alkaline Phosphatase 61 Total Protein 6.6 Albumin 3.9 Blood Type A Negative Antibody Screen POSITIVE Antibody Identification Cold Antibody Inconclusive Crossmatch (AHG) See Detail Assessment and Plan (1) Fracture of distal end of right femur: Status: Acute (2) Hematoma of right parietal scalp: Status: Acute Plan 88/F with HTN, HLD prior right hip replacement here with accidental fall and right hip fracture Possible nondisplaced fracture of the distal femoral metaphysis -CT confirmed mid and distal femur fracture on the right side -operative repair by ortho today -npo -morphine for pain -ECG shows aflutter, which is new, rate controlled, will get cardiac eval after surgery and may need anticoagulation -at average risk for cardiopulmonary complications and no indication for further testing at this time HTN, HLD-resume home meds DVT prophylaxis compression device, chemical after surgery full code Quality Stroke Does the patient have a stroke diagnosis?: No VTE Prior VTE?: No VTE Risk Level:: Medical - moderate - high VTE Device Contraindication: N/A - Device Ordered VTE Drug Contraindication: N/A - Med Ordered
--- NOTE | 2024-04-09 11:26 | MHC.CM.PN ---
IMM 04/09/24, EMR REVIEWED, PT W/DISTAL FEMUR FRACTURE, CM MET W/PT AND DTR LACHELLE WHO IS AT BEDSIDE, PT IS A&OX4 AND ANSWERS ALL QUESTIONS, PT REPORTS SE IS FULLY INDEP W/ALL CARE, NO DME/SERVICES AND PT TAKES STARES MULTIPLE TIMES PER DAY, PT REPORTS SHE IS HOPING TO GET INTO [facility] FOR ACUTE REHAB SHE WANTS TO GET BACK TO HER BEING INDEP/HOME QUICKLY POSSIBLE. PT VERIFIES PCP IS DR. PATEL, PT EDUCATED ON AND COMPLETES A NEW HCP NAMING HER DTR LACHELLE MALIK [phone] HER [facility] AND HER SON WILMER MALIK [phone] HER ALTERNATE, PT RECEIVED EDUCATIONAL HANDOUT AND ORGINAL DOC, COPY UPLOADED TO [facility] AND PLACED IN PHYSICAL CHART.
--- NOTE | 2024-04-09 16:17 | MHC.SHP ---
Pre-Procedural Eval Section A - 24 Hr Update-Section A only Date of Service: 04/09/24 The patient is an INPATIENT: Yes Changes since office visit: No Cold of Flu in the past 2 weeks, No New Medical Problems, No Changes in Medication and No Patient answered all questions The patient has been examined within 24 hours of the surgical procedure. The History & Physical has been completed within 30 days and I have reviewed it.: Yes Section B - Complete if H&P > 30 days Chief Complaint: distal femur fracture Allergies: Allergies Allergy/AdvReac Type Severity Reaction Status Date / Time azithromycin Allergy Unknown Verified 04/08/24 14:27 Plan I have reviewed the history and physical and performed a pertinent physical examination on my patient. No changes have occurred unless specified. Time Spent With Patient Time: Total time managing care of this patient today ____ minutes.
--- NOTE | 2024-04-09 16:32 | P.CONAN_ITS ---
HPI - Anesthesia Eval Consult details Narrative: for ORIF right distal femur PMFSH Active Problems Active Problems: All Active Problems HTN (hypertension) (Acute) Fall (Acute) Hematoma of right parietal scalp (Acute) Fracture of distal end of right femur (Acute) Past Medical History Medical History Hiatal hernia Anxiety HLD (hyperlipidemia) HTN (hypertension) Family History Family history of problems with anesthesia: No Surgical History History of Problems with Anesthesia: No Social History Social History Household Members: None Household Members Other:: lives downstairs from grandson Housing: Other Housing Other:: 2 family Do you presently have visiting nurse or other home services: No Patient Tobacco Use Status: Never used Tobacco Smoked in Last 30 Days: No Use of substances other than those prescribed or required for medical reasons: No Currently Displaying Signs/Symptoms of Drug Intoxication Withdrawal: No Have you been hit, kicked, punched, or otherwise hurt by someone within the past year? If so, by whom?: No Do you feel safe in your current relationship?: No Current Relationship Is there a partner from a previous relationship who is making you feel unsafe now?: No Are you made to feel afraid or neglected: No Advance Directives: No Advance Directives Information Provided: Yes Do you have a plan to hurt others: No Plan Recently lost weight without trying: No Eating poorly because of decreased appetite: No Nutrition Risks: No Nutritional Risk Patient : No : No Poor oral hygiene: No service: No Meds Allergies Allergy/AdvReac Type Severity Reaction Status Date / Time azithromycin Allergy Unknown Verified 04/08/24 14:27 Active Medications: Current Medications Acetaminophen (Acetaminophen 325 Mg Tablet) 650 mg PO Q6H PRN PRN Reason: Pain, Mild 1-3,fever,headache Amlodipine Besylate (Amlodipine Besylate 5 Mg Tablet) 5 mg PO DAILY [facility]; Protocol Last Admin: 04/09/24 08:32 Dose: 5 mg Aspirin (Aspirin Enteric Coated 81 Mg Tablet.Dr) 81 mg PO DAILY [facility] Atorvastatin Calcium (Atorvastatin Calcium 10 Mg Tablet) 10 mg PO BEDTIME MARY GRACE Last Admin: 04/08/24 23:03 Dose: 10 mg Calcium Carbonate (Calcium Carbonate 750 Mg Tab.Chew) 750 mg PO Q4H PRN PRN Reason: Heartburn Hydrochlorothiazide (Hydrochlorothiazide 25 Mg Tablet) 25 mg PO DAILY [facility]; Protocol Last Admin: 04/09/24 09:21 Dose: Not Given Lisinopril (Lisinopril 40 Mg Tablet) 40 mg PO BEDTIME [facility]; Protocol Last Admin: 04/08/24 22:03 Dose: 40 mg Magnesium Hydroxide (Milk Of Magnesia 30 Ml Oral.Susp) 30 ml PO DAILY PRN PRN Reason: Constipation Melatonin (Melatonin 3 Mg Tablet) 6 mg PO BEDTIME PRN PRN Reason: Insomnia Metoprolol Succinate (Metoprolol Succinate Er 50 Mg Tab.Er.24h) 50 mg PO BEDTIME [facility]; Protocol Last Admin: 04/08/24 22:04 Dose: 50 mg Morphine Sulfate (Morphine Sulfate 4 Mg/Ml Cartridge) 2 mg IVPUSH Q4H PRN; Protocol PRN Reason: Pain, Severe (Pain Scale 7-10) Last Admin: 04/09/24 13:01 Dose: 2 mg Multivitamins/Vitamin C (Multivitamin Tablet) 1 tab PO DAILY [facility] Last Admin: 04/09/24 08:32 Dose: 1 tab Ondansetron HCl (Ondansetron Hcl 4 Mg/2 Ml Vial) 4 mg IVPUSH Q8H PRN PRN Reason: Nausea and Vomiting Last Admin: 04/09/24 09:23 Dose: 4 mg Polyethylene Glycol (Polyethylene Glycol 3350 17 Gm Powd.Pack) 17 gm PO DAILY PRN PRN Reason: Constipation Sodium Chloride (0.9 % Sodium Chloride Flush 3 Ml Syringe) [facility] Last Admin: 04/09/24 08:49 Dose: 3 ml Home Medications ?Medication ?Instructions ?Recorded ?Confirmed ?Last Taken ?Type amlodipine 5 mg tablet 5 mg PO DAILY 04/08/24 04/08/24 04/08/24 09:00 History aspirin 81 mg tablet,delayed 81 mg PO DAILY 04/08/24 04/08/24 04/08/24 09:00 History release atorvastatin 10 mg tablet 10 mg PO BEDTIME 04/08/24 04/08/24 04/07/24 History coenzyme Q10 100 mg capsule (Co 100 mg PO DAILY 04/08/24 04/08/24 04/08/24 09:00 History Q-10) hydrochlorothiazide 25 mg tablet 25 mg PO DAILY 04/08/24 04/08/24 04/08/24 09:00 History lisinopril 40 mg tablet 40 mg PO BEDTIME 04/08/24 04/08/24 04/07/24 History metoprolol succinate 50 mg 50 mg PO BEDTIME 04/08/24 04/08/24 04/07/24 History tablet,extended release 24 hr multivitamin 1 tab PO DAILY 04/08/24 04/08/24 04/08/24 09:00 History turmeric 400 mg capsule 400 mg PO DAILY 04/08/24 04/08/24 04/08/24 09:00 History Exam Height,Weight and Vital Signs: Height 5 ft 3 in Weight 66.5 kg Last Vital Signs Temp 99.1 F 04/09/24 16:11 Pulse 73 04/09/24 16:11 Resp 16 04/09/24 16:11 BP 123/42 L 04/09/24 16:11 Pulse Ox 95 04/09/24 16:11 O2 Del Method Room Air 04/09/24 16:11 Pertinent Lab Results Pertinent Lab Results: Laboratory Tests 04/08/24 04/08/24 16:23 16:23 WBC 11.3 H RBC 3.07 L Hgb 11.2 L Hct 30.4 L MCV 99.0 H MCH 36.5 H MCHC 36.8 H RDW 15.3 Plt Count 247 MPV 8.8 L Immature Gran % (Auto) 0.4 Neut % (Auto) 84.6 H Lymph % (Auto) 8.9 L [place] % (Auto) 5.1 Eos % (Auto) 0.6 Baso % (Auto) 0.4 Lymph # (Auto) 1.0 L [place] # (Auto) 0.6 Eos # (Auto) 0.1 Baso # (Auto) 0.0 Abs Immat Gran (auto) 0.05 H Absolute Neuts (auto) 9.5 H Absolute Nucleated RBC 0.000 Nucleated RBC % (auto) 0.0 Sodium 138 Potassium 3.9 Chloride 104 Carbon Dioxide 27 Anion Gap 11 L BUN 26 H Creatinine 0.85 Estim Creat Clear Calc 41.1 Estimated GFR > 60 Random Glucose 117 H Calcium 8.5 Total Bilirubin 0.4 AST 21 ALT 11 Alkaline Phosphatase 61 Total Protein 6.6 Albumin 3.9 Blood Type A Negative Antibody Screen POSITIVE Antibody Identification Cold Antibody Inconclusive Antigen Identification S Antigen - NEGATIVE Crossmatch (AHG) See Detail Airway Mallampati Class: II TM Dist: >3cm Neck ROM: Full Denture: Upper Partial: Lower Loose/Missing/Broken Teeth: Yes, Upper and Lower Heart: ok. echo reviewed. Lungs: ok. Assessment and Plan Assessment Anesthesia Assessment: Anesthesia Plan Discussed and Chart Reviewed Final Anesthetic Review Family History of Problems with Anesthesia: No History of Problems with Anesthesia: No NPO: Yes ASA Class: IV Final Preanesthetic Review: No Changes in Pt Med Stat, Meds/Allgs Chart Reviewed, Consent Obtained/Reviewed and Anes Risks/Benef Reviewed Patient Risk: High Procedure Risk: Low Anesthetic Plan Anesthetic Plan: GA, Spinal and Agree w/ Assess. and Plan Disposition: Standard PACU
--- NOTE | 2024-04-09 20:08 | PM.OP ---
Brief Operative Note Date of Service: 04/09/24 Pre-op diagnosis: right [place] C periprosthetic distal femur fracture Post-op diagnosis: same Procedure: ORIF right femur Implants: [place] 328mm interprosthetic locking plate Surgeon: Nilo Calderon MD Anesthesia: local and spinal Was an Precision Dancer used for this Procedure?: Yes Precision Dancer: Skyler Berman Estimated blood loss (mL): 400 IV fluids (mL): 1,200 Pathology: none sent Condition: stable Disposition: PACU
[2024-04-09] MEDS: Metoprolol Succinate ER 50 MG TAB.ER.24H PO (20:55)
[2024-04-09] MEDS: lisinopriL 40 MG TABLET PO (20:56)
[2024-04-09] MEDS: Atorvastatin Calcium 10 MG TABLET PO (20:56)
[2024-04-09] MEDS: Lactated Ringers 1,000 ML 100 ML IVCONT (20:59)
[2024-04-09] MEDS: ceFAZolin Sodium/Dextrose,Iso 2 GM/50 ML PIGGYBACK IV (23:45)
[2024-04-10] VITALS (14 sets, daily range): BP systolic 105–137; BP diastolic 51–64; PULSE 73–104; RESP 14–20; TEMP 36.6–37.2; O2SAT 93–96
[2024-04-10] MEDS: Morphine Sulfate 4 MG/ML CARTRIDGE 2 MG IVPUSH (03:20)
[2024-04-10] MEDS: ondansetron HCL 4 MG/2 ML VIAL IVPUSH (04:43)
[2024-04-10] MEDS: Multivitamin TABLET 1 TAB PO (08:05)
[2024-04-10] MEDS: 0.9 % Sodium Chloride Flush 3 ML SYRINGE IVFLUSH ×7 (08:05→23:28)
[2024-04-10] MEDS: amLODIPine Besylate 5 MG TABLET PO (08:05)
[2024-04-10] MEDS: Promethazine HCL 25 MG TABLET PO (08:22)
[2024-04-10] MEDS: oxyCODONE HCl Immed Release 5 MG TABLET PO (08:22)
[2024-04-10 09:07] LABS: MANUAL DIFF FLAG NO
[2024-04-10 09:26] LABS: Anion Gap 12 (12-20); Blood Urea Nitrogen 35 mg/dL (9-16); Calcium 8.3 mg/dL (8.4-10.2); Carbon Dioxide 28 mmol/L (22-29); Chloride 103 mmol/L (96-108); Creatinine Clr Calc Pharmacy 33.2; Estimated Glomerular Filt Rate 49; Glucose Random 138 mg/dL (60-115); Potassium 4.1 mmol/L (3.3-5.1); Sodium 139 mmol/L (135-145)
[2024-04-10 09:31] LABS: Basophils Percent Auto 0.3 % (0-2); Eosinophils Percent Auto 0.1 % (0-4); Hematocrit 22.1 % (37.0-47.0); Hemoglobin 7.4 g/dl (12.0-16.0); Imm Gran Abs Auto 0.02 X10*3/uL (0.00-0.03); Imm Gran Pct Auto 0.2 % (0.0-0.4); Lymphocytes Absolute Auto 0.9 X10*3/uL (1.2-4.9); Lymphocytes Percent Auto 10.4 % (20-40); Mean Corpuscular HGB Conc 33.5 g/dl (31.0-35.0); Mean Corpuscular Hemoglobin 31.9 pg (27.0-33.0); Mean Corpuscular Volume 95.3 fL (80.0-98.0); Mean Platelet Volume 9.3 fL (9.4-12.3); Monocytes Absolute Auto 1.2 X10*3/uL (0.1-1.2); Monocytes Percent Auto 13.4 % (2-11); Neutrophils Absolute Auto 6.6 x10*3/uL (2.0-8.3); Neutrophils Percent Auto 75.6 % (45-73); Platelet Count 201 X10*3/uL (160-400); Red Blood Count 2.32 X10*6/uL (4.20-5.50); White Blood Count 8.7 X10*3/uL (4.8-10.8)
--- NOTE | 2024-04-10 10:30 | HO.POSTANES ---
Post Anesthesia Evaluation Post Anesthesia Evaluation Date of Service: 04/10/24 Vital Signs: Vital Signs Temp Pulse Resp BP Pulse Ox O2 Del Method O2 Flow Rate 04/10/24 09:14 117/57 L 04/10/24 08:05 117/57 L 04/10/24 07:29 98.5 F 97 18 117/57 L 93 Room Air 04/10/24 03:43 98.8 F 100 16 113/53 L 96 Room Air 04/09/24 23:38 97.5 F 93 16 139/65 95 Room Air 2 Anesthesia: Spinal Mental Status: Awake Pain Control: Satisfactory Nausea/Vomiting: None Hydration: Adequate Anesthesia-Related Issues: No Anes. Related Issues
--- NOTE | 2024-04-10 10:59 | HO.PM.IMPN ---
Subjective Subjective Date of Service: 04/10/24 Interval History: Follow-up on femur fracture on the right side, she slept well and pain was controlled by having spasmodic pain this morning. succesful surgery yesterday, feels tired and H/H down singiciantly and she looks pale and BP on lower side Physical Exam Vital Signs: Vital Signs: Last Vital Signs Temp 98.5 F 04/10/24 10:39 Pulse 84 04/10/24 10:39 Resp 18 04/10/24 10:39 BP 116/53 L 04/10/24 10:39 Pulse Ox 93 04/10/24 07:29 O2 Del Method Room Air 04/10/24 07:29 O2 Flow Rate 2 04/09/24 23:38 BMI result Body Mass Index 26.0 Const: Other: General: AO X 3, no acute distress Resp: CTA bilateral CVS: S1,S2,RRR GI: +BS, NT, no distention Skin: No rash, surgery site intact Neuro: motor grossly intact Psych: appropriate affect Objective Data Active Medications Acetaminophen (Acetaminophen 325 Mg Tablet) 650 mg PO Q6H PRN PRN Reason: Pain, Mild 1-3,fever,headache Amlodipine Besylate (Amlodipine Besylate 5 Mg Tablet) 5 mg PO DAILY [facility]; Protocol Last Admin: 04/10/24 08:05 Dose: 5 mg Documented By: AYDEN Aspirin (Aspirin Enteric Coated 81 Mg Tablet.Dr) 81 mg PO DAILY MARY GRACE Atorvastatin Calcium (Atorvastatin Calcium 10 Mg Tablet) 10 mg PO BEDTIME MARY GRACE Last Admin: 04/09/24 20:56 Dose: 10 mg Documented By: ARBEN Calcium Carbonate (Calcium Carbonate 750 Mg Tab.Chew) 750 mg PO Q4H PRN PRN Reason: Heartburn Enoxaparin Sodium (Enoxaparin Sodium 40 Mg/0.4 Ml Syringe) 40 mg SUBCUT Q24H MARY GRACE Lisinopril (Lisinopril 10 Mg Tablet) 10 mg PO BEDTIME [facility]; Protocol Magnesium Hydroxide (Milk Of Magnesia 30 Ml Oral.Susp) 30 ml PO DAILY PRN PRN Reason: Constipation Melatonin (Melatonin 3 Mg Tablet) 6 mg PO BEDTIME PRN PRN Reason: Insomnia Metoprolol Succinate (Metoprolol Succinate Er 50 Mg Tab.Er.24h) 50 mg PO BEDTIME MARY GRACE; Protocol Last Admin: 04/09/24 20:55 Dose: 50 mg Documented By: ARBEN Multivitamins/Vitamin C (Multivitamin Tablet) 1 tab PO DAILY [facility] Last Admin: 04/10/24 08:05 Dose: 1 tab Documented By: AYDEN Oxycodone HCl (Oxycodone Hcl Immed Release 5 Mg Tablet) 5 mg PO Q6H PRN PRN Reason: Pain, Severe (Pain Scale 7-10) Last Admin: 04/10/24 08:22 Dose: 5 mg Documented By: AYEDN Polyethylene Glycol (Polyethylene Glycol 3350 17 Gm Powd.Pack) 17 gm PO DAILY PRN PRN Reason: Constipation Promethazine HCl (Promethazine Hcl 25 Mg Tablet) 25 mg PO Q4H PRN PRN Reason: Nausea and Vomiting Last Admin: 04/10/24 08:22 Dose: 25 mg Documented By: AYDEN Sodium Chloride (0.9 % Sodium Chloride Flush 3 Ml Syringe) [facility] Last Admin: 04/10/24 08:05 Dose: 3 ml Documented By: AYDEN Sodium Chloride (0.9 % Sodium Chloride Flush 3 Ml Syringe) [facility] Last Admin: 04/10/24 08:06 Dose: 3 ml Documented By: AYDEN Labs 04/10/24 08:54 04/10/24 08:54 Labs: Laboratory Results - last 24 hr 04/08/24 04/08/24 04/10/24 16:23 16:23 08:54 MCV 95.3 MCH 31.9 MCHC 33.5 RDW 13.0 Plt Count 201 MPV 9.3 L Immature Gran % (Auto) 0.2 Neut % (Auto) 75.6 H Lymph % (Auto) 10.4 L [place] % (Auto) 13.4 H Eos % (Auto) 0.1 Baso % (Auto) 0.3 Lymph # (Auto) 0.9 L [place] # (Auto) 1.2 Eos # (Auto) 0.0 Baso # (Auto) 0.0 Abs Immat Gran (auto) 0.02 Absolute Neuts (auto) 6.6 Absolute Nucleated RBC 0.000 Nucleated RBC % (auto) 0.0 Anion Gap 12 Estim Creat Clear Calc 33.2 Estimated GFR 49 Random Glucose 138 H Calcium 8.3 L Blood Type A Negative Antibody Screen POSITIVE Antibody Identification Cold Antibody Inconclusive Antigen Identification S Antigen - NEGATIVE Crossmatch (AHG) See Detail Assessment and Plan (1) Fracture of distal end of right femur: Status: Acute (2) Hematoma of right parietal scalp: Status: Acute Plan 88/F with HTN, HLD prior right hip replacement here with accidental fall and right hip fracture mid and distal femur fracture on the right side -operative repair by ortho 04/09 -oxycodone for pain -PT/OT -Lovneox for dvt prevention Acute blood loss anemia, related to fracture -RBC transfusion -repeat cbc in am HTN, HLD-Hold BP meds d/t low BP DVT prophylaxis compression device, chemical after surgery full code Quality Stroke Does the patient have a stroke diagnosis?: No VTE Prior VTE?: No VTE Risk Level:: Medical - moderate - high VTE Device Contraindication: N/A - Device Ordered VTE Drug Contraindication: N/A - Med Ordered
--- NOTE | 2024-04-10 12:27 | MHC.CM.PN ---
EMR REVIEW, PER HOSPITALIST PT WILL REMAIN INPT OVERNIGHT D/T ACUTE BLOOD LOSS ANEMIA AND RECHECK LABS IN AM, ANTIC PT WILL BE MEDICALLY CLEARED TOMORROW TO [facility] AT [facility], CM WILL CONT TO FOLLOW DC NEEDS.
[2024-04-10] MEDS: oxyCODONE HCl Immed Release 5 MG TABLET 2.5 MG PO ×2 (16:09→22:49)
--- NOTE | 2024-04-10 17:05 | P.PNOP_ITS ---
Subjective Subjective Date of Service: 04/10/24 Interval history: POD 1 s/p ORIF Rt disal femur fracture patient resting in bed no overnight events c.o nausea early this morning Physical Exam Vital Signs: Vital Signs: Last Vital Signs Temp 98.7 F 04/10/24 16:58 Pulse 94 04/10/24 16:58 Resp 18 04/10/24 16:58 BP 119/57 L 04/10/24 16:58 Pulse Ox 95 04/10/24 15:02 O2 Del Method Room Air 04/10/24 15:02 O2 Flow Rate 2 04/09/24 23:38 BMI result Body Mass Index 26.0 Const: General: cooperative and no acute distress Orientation/consciousness: patient oriented x3 Resp: Effort & Inspection: normal respiratory effort and able to speak in complete sentences Cardio: Peripheral pulses: Peripheral pulses 2+ throughout Neuro: General: patient oriented x3 Extrem: Other: bandage clean dry and intact. [place] intact. No erythema or effusion. Calf supple nontender. Neurovascularly intact. Procedures Date of Service Date of Service: 04/10/24 Progress Note: A&P Assessment and plan (1) Fracture of distal end of right femur: Status: Acute Assessment and Plan: * Continue pain mgmnt * lovenox for dvt ppx * PT/OT-NWB RLE * -2units PRBCs, monitor h/h * Dispo planning-Pending PT eval, pain mgmnt Time Spent With Patient Time: Total time managing care of this patient today ____ minutes. Quality Stroke Does the patient have a stroke diagnosis?: No VTE Prior VTE?: No VTE Risk Level:: Medical - moderate - high VTE Device Contraindication: N/A - Device Ordered VTE Drug Contraindication: N/A - Med Ordered
[2024-04-10] MEDS: Enoxaparin Sodium 40 MG/0.4 ML SYRINGE SUBCUT (19:24)
[2024-04-10] MEDS: lisinopriL 10 MG TABLET PO (20:08)
[2024-04-10] MEDS: Acetaminophen 325 MG TABLET 650 MG PO (20:09)
[2024-04-10] MEDS: Atorvastatin Calcium 10 MG TABLET PO (20:09)
[2024-04-10] MEDS: Metoprolol Succinate ER 50 MG TAB.ER.24H PO (20:09)
[2024-04-11 03:19] VITALS: BP 118/75; PULSE 90; RESP 16; TEMP 36.9; O2SAT 94
[2024-04-11] MEDS: oxyCODONE HCl Immed Release 5 MG TABLET 2.5 MG PO ×2 (05:02→11:49)
[2024-04-11 07:11] VITALS: BP 111/57; PULSE 83; RESP 20; TEMP 37.2; O2SAT 92
[2024-04-11 07:21] LABS: Anion Gap 10 (12-20); Blood Urea Nitrogen 34 mg/dL (9-16); Carbon Dioxide 27 mmol/L (22-29); Chloride 104 mmol/L (96-108); Creatinine Clr Calc Pharmacy 31.7; Estimated Glomerular Filt Rate 47; Glucose Random 118 mg/dL (60-115); Potassium 3.8 mmol/L (3.3-5.1); Sodium 137 mmol/L (135-145)
[2024-04-11 07:28] VITALS: BP 111/57; PULSE 83; O2SAT 93
[2024-04-11 07:31] LABS: Basophils Percent Auto 0.2 % (0-2); Eosinophils Percent Auto 0.2 % (0-4); Hematocrit 27.9 % (37.0-47.0); Hemoglobin 9.7 g/dl (12.0-16.0); Imm Gran Abs Auto 0.05 X10*3/uL (0.00-0.03); Imm Gran Pct Auto 0.4 % (0.0-0.4); Lymphocytes Absolute Auto 1.1 X10*3/uL (1.2-4.9); MANUAL DIFF FLAG SCAN; Mean Corpuscular HGB Conc 34.8 g/dl (31.0-35.0); Mean Corpuscular Hemoglobin 31.2 pg (27.0-33.0); Mean Corpuscular Volume 89.7 fL (80.0-98.0); Mean Platelet Volume 9.5 fL (9.4-12.3); Monocytes Absolute Auto 1.6 X10*3/uL (0.1-1.2); Monocytes Percent Auto 12.8 % (2-11); Neutrophils Absolute Auto 9.5 x10*3/uL (2.0-8.3); Neutrophils Percent Auto 77.4 % (45-73); Platelet Count 169 X10*3/uL (160-400); Red Blood Count 3.11 X10*6/uL (4.20-5.50); Red Cell Distribution Width 14.3 % (11.0-16.0); SCAN SMEAR FLAG 1; White Blood Count 12.3 X10*3/uL (4.8-10.8)
[2024-04-11 07:56] LABS: SLIDE REVIEW VERIFIED
--- NOTE | 2024-04-11 08:41 | P.PNOP_ITS ---
Subjective Subjective Date of Service: 04/11/24 Interval history: POD 2 s/p ORIF Rt disal femur fracture patient resting in bed-felling better after transfusion no overnight events Physical Exam Vital Signs: Vital Signs: Last Vital Signs Temp 98.9 F 04/11/24 07:11 Pulse 83 04/11/24 07:28 Resp 20 04/11/24 07:11 BP 111/57 L 04/11/24 07:28 Pulse Ox 93 04/11/24 07:28 O2 Del Method Room Air 04/11/24 07:11 O2 Flow Rate 2 04/09/24 23:38 BMI result Body Mass Index 26.0 Const: General: cooperative, healthy appearing and no acute distress Orientation/consciousness: patient oriented x3 Resp: Effort & Inspection: normal respiratory effort and able to speak in complete sentences Cardio: Rate: regular rate Peripheral pulses: Peripheral pulses 2+ throughout GI: Palpation (GI): Soft to palpation Skin: General skin exam: no rashes or lesions noted Neuro: General: patient oriented x3 Extrem: Other: bandage clean dry and intact. [place] intact. No erythema or effusion. Calf supple nontender. Neurovascularly intact. Procedures Date of Service Date of Service: 04/11/24 Progress Note: A&P Assessment and plan (1) Fracture of distal end of right femur: Status: Acute Assessment and Plan: * Continue pain mgmnt * lovenox for dvt ppx * PT/OT-NWB RLE * Dispo planning-Pending PT eval, pain mgmnt Time Spent With Patient Time: Total time managing care of this patient today ____ minutes. Quality Stroke Does the patient have a stroke diagnosis?: No VTE Prior VTE?: No VTE Risk Level:: Medical - moderate - high VTE Device Contraindication: N/A - Device Ordered VTE Drug Contraindication: N/A - Med Ordered
[2024-04-11] MEDS: 0.9 % Sodium Chloride Flush 3 ML SYRINGE IVFLUSH (09:21)
[2024-04-11 09:22] VITALS: BP 111/57
[2024-04-11] MEDS: Multivitamin TABLET 1 TAB PO (09:22)
[2024-04-11] MEDS: amLODIPine Besylate 5 MG TABLET PO (09:22)
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
--- NOTE | 2024-04-11 10:52 | MHC.CM.PN ---
Pt has been medically cleared for DC, she will go to [facility] today via BLS.
--- NOTE | 2024-04-11 11:00 | PC.NURSE ---
Cruz catheter d/c, patient tolerated procedure well, education on voiding trail provided, Cely DEY notified that patient is due to void by 1700.
[2024-04-11 11:43] VITALS: BP 111/52; PULSE 91; RESP 20; TEMP 37.6; O2SAT 93
--- NOTE | 2024-04-16 11:51 | P.OP_ITS ---
Operative Note Operative Note Date of Service: 04/09/24 Narrative: Date of Service: 04/09/24 Pre-op diagnosis: right [place] C periprosthetic distal femur fracture Post-op diagnosis: same Procedure: ORIF right femur Implants: [place] 328mm interprosthetic locking plate Surgeon: Nilo Calderon MD Anesthesia: local and spinal Was an Stamp Mounter used for this Procedure?: Yes Stamp Mounter: Skyler Berman Estimated blood loss (mL): 400 IV fluids (mL): 1,200 Pathology: none sent Condition: stable Disposition: PACU Patient was brought to the operating room and placed in the left lateral decubitus position of the radiolucent table. She was prepped and draped in standard sterile fashion and a time out was called to identify proper site, proper procedure and IV antibiotics per weight were administered. I began by making a lateral incision from the lateral joint line to the proximal femur. Full-thickness skin flaps were developed. I then made an incision in the tensor fascia and swept the vastus lateralis anteriorly. The posterior vessels were controlled with the Werewolf Hemostasis Wand. This was a comminuted fracture of the shaft of the femur. The total hip replacement was stable. I used a combination of for bruise and lobster claw retractors to reduce the butterfly comminuted fracture. I then used 5 lag screws to reduce and maintain the fracture. Standard AO technique was used. I then selected a 328 mm endoprosthetic dejesus CAROL locking plate. This was placed distally on the femur and lateral femoral condyle. True lateral x-ray was obtained to confirm position of the plate. K-wires were used to provisionally hold it and the proximal end of the plate was placed just proximal to the lesser trochanter. This gave me 6 screws proximal to the most proximal extent of the fracture. I then placed my distal locking screws into the distal femur. Locking screws were placed through the comminuted fracture area as well and then proximal to the fracture I was able to place 5 bicortical screws and 1 unicortical screw. I took the femur and knee and hip through range of motion was satisfied with stability. I then irrigated copiously and reconfirmed the screw and plate position with biplanar fluoroscopy. Once satisfied with this I removed all non essential instrumentation and irrigated copiously. Patient was then placed in sterile dressing and extubated. She was brought to the recovery room in stable condition. There were no known complications.
== END 2024-04-11 13:00 | DRG 481 ==
LOC: HO.ED 15:38 → HO.EDOVER 17:25 → HO.IMC 19:12
PROVIDERS: Orthopaedic Surgery; Admitting Provider Internal Medicine; Emergency Provider Student in an Organized Health Care Education/Training Program; PCP Family Medicine; Visit Provider Internal Medicine
PROC: 0QSB04Z Reposition Right Lower Femur with Internal Fixation Device, Open Approach (ICD-10-PCS; principal; 2024-04-09 15:30)
DX: S72.401A Unspecified fracture of lower end of right femur, initial encounter for closed fracture (principal); D62 Acute posthemorrhagic anemia; M97.01XA Periprosthetic fracture around internal prosthetic right hip joint, initial encounter; S00.03XA Contusion of scalp, initial encounter; W19.XXXA Unspecified fall, initial encounter; Z79.82 Long term (current) use of aspirin; Z79.899 Other long term (current) drug therapy
CPT/HCPCS: 36415; 70450; 72125; 73560; 73700; 80048; 80053; 85025; 86850; 86870; 86885; 86900; 86901; 86902; 86905; 86920; 86922; 93005; 97110; 97162; 97166; 99285; C1713; C1758; J0131; J0690; J1650; J1885; J2003; J2270; J2405; J2704; J2795; J3010; J7120; P9016

== ENCOUNTER → 2024-04-08 17:05 | Outpatient (BNV) | payer MEDICARE, SELFPAY | PROVIDERS: Admitting Provider Internal Medicine; Emergency Provider Student in an Organized Health Care Education/Training Program; PCP Family Medicine; Visit Provider Internal Medicine | DX: S72.401A Unspecified fracture of lower end of right femur, initial encounter for closed fracture (principal); W19.XXXA Unspecified fall, initial encounter; S00.03XA Contusion of scalp, initial encounter | CPT/HCPCS: 99223; 99232; 99239 ==

== ENCOUNTER 2024-04-23 09:09 | Outpatient (REF) | payer MEDICARE, SELFPAY ==
--- OUTSIDE RECORDS SUMMARY | 2024-04-24 09:32 | XMS_ITS | Continuity of Care Document ---
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 [facility] [place], [place], [id number] , [place]. tel: [phone] [facility] , [facility]2 [place], [place], [id number], [place] tel:[phone] [facility] [place] BRVO (chief complaint) Trib rtnl vein occlusion, left eye, with macular edemaPuckering of macula, bilateral May-0 -202 0 Sue Corbin. [address] [place], [place], [id number] , [place]. tel:[phone] Referring Provider: Corbin Stormi, [address], [place], [address] . tel:[phone] [facility] , [address], [place], [place], [address], [place] tel:[phone] [facility] [place] BRVO w/ME (chief complaint) Trib rtnl vein occlusion, left eye, with macular edemaPuckering of macula, bilateral 0 Sue Alaniz. [address], [place], [place], [address] , [place]. tel: [phone] Referring Provider: Corbin Rogers, [address], [place], [address] . tel:[phone] [facility] , [address], [place], [place], [id number], [place] tel:[phone] [facility] [place] BRVO (chief complaint) Trib rtnl vein occlusion, left eye, with macular edemaPuckering of macula, bilateral 9 Sue Alaniz. [address], [place], [place], [id number] , [place]. tel: [phone] Referring Provider: Corbin Sue, [address], [place], [address] . tel:[phone] [facility] , [address], [place], [place], [id number], [place] tel:[phone] [place] Retina (chief complaint) Tributary (branch) retinal vein occlusion, left eye, stable Jun-0 2201 9 Sue Alaniz. [address], [place], [place], [id number] , [place]. tel: [phone] Referring Provider: Corbin Sue, [address], [place], [address] . tel:[phone] [facility] , [address], [place], [place], [id number], [place] tel:[phone] [facility] [place] BRVO (chief complaint) Trib rtnl vein occlusion, left eye, with macular edemaPuckering of macula, bilateralBenign neoplasm of right choroid Mar-0 1-201 9 Sue Alaniz. [address], [place], [place], [address] , [place]. tel: [phone] Referring Provider: Corbin Rogers, [address], [place], [address] . tel:[phone] [facility] , [address], [place], [place], [address], [place] tel:[phone] [facility] [place] BRVO follow up (chief complaint) Trib rtnl vein occlusion, left eye, with macular edema Mar-2 3-201 7 Sue Alaniz. [address], [place], [place], [id number] , [place]. tel: [phone] Referring Provider: Corbin Rogers, [address], [place], [address] . tel:[phone] [facility] , [address], [place], [place], [address], [place] tel:[phone] [facility] [place] BRVO (chief complaint) Trib rtnl vein occlusion, left eye, with macular edema Mar-1 6-201 7 Sue Alaniz. [address], [place], [place], [address] , [place]. tel: [phone] Referring Provider: Corbin Sue, [address], [place], [address] . tel:[phone] [facility] , [address], [place], [place], [address], [place] tel:[phone] [facility] [place] CME (chief complaint) Cystoid macular degeneration, left eyeTributary (branch) retinal vein occlusion, left eye Mar-3 0-201 6 Sue Alaniz. [address], [place], [place], [id number] , [place]. tel: [phone] Referring Provider: Corbinharsha Rogers, [address], [place], [address] . tel:[phone] [facility] , [address], [place], [place], [id number], [place] tel:[phone] [facility] [place] Cystoid Mac Degen (chief complaint) Cystoid macular degeneration, left eyeTributary (branch) retinal vein occlusion, left eye Mar-0 2-201 6 Sue Alaniz. [address], [place], [place], [id number] , [place]. tel: [phone] Referring Provider: Corbin Rogers, [address], [place], [address] . tel:[phone] [facility] , [address] [place], [id number], tel:[phone] [facility] [place] BRVO (chief complaint) Cystoid macular degeneration, left eyeTributary (branch) retinal vein occlusion, left eye Feb-1 8-201 6 Sue Alaniz. [address], [place], [place], [id number] , [place]. tel: [phone] Referring Provider: Corbin Rogers, [address], [place], [address] . tel:[phone] [facility] , [address], [place], [place], [id number], [place] tel:[phone] [facility] [place] [facility] (chief complaint) Cystoid macular degeneration, left eyeTributary (branch) retinal vein occlusion, left eye Feb-0 3-201 6 Sue Alaniz. [address], [place], [place], [address] , [place]. tel: [phone] Referring Provider: Corbin Rogers, [address], [place], [address] . tel:[phone] [facility] , [address], [place], [place], [id number], tel:[phone] [facility] [place] Retinal evaluation (chief complaint) Cystoid macular degeneration, left eyeTributary (branch) retinal vein occlusion, left eyePuckering of macula, right eye 6 Sue Alaniz. [address] [place], [place], [id number] , [place]. tel:[phone] Referring Provider: Dinah Moon, [address] [place], [address] . tel:[phone] [facility] , [address] [place], [place], [id number], [place] tel:[phone] [facility] [place] Blurry vision (chief complaint) Tributary (branch) retinal vein occlusion, left eye 6 Long OD Dinah. [address] [place] [address], [id number] , [place]. tel:[phone] Referring Provider: Dinah Moon, [address] [place], [address] . tel:[phone] Family History Family Member Type Diagnosis Age [...] Provider Payers Payer name Insurance type Covered alliance party ID Authorroberto carlosa tichristian(s) Medicare Traditional MB [id number] BCBS Supplemental CI [id number] Social History Type Description Quantity Date Captured [...] Future Order: Radiology Order OC T [place] ([id number]), Collected on: Ordered Future Order: Radiology Order OC T [place] ([id number]), Collected on: Ordered Future Order: Radiology Order OC T [place] ([id number]), Collected on: Ordered Future Order: Radiology Order OC T [place] ([id number]), Collected on: Ordered Future Order: Radiology Order OC T [place] ([id number]), Collected on: Ordered History Of Present Illness [...] Pt states she has seen Doctors [place] and records have been sent to us. [...] at home monitors regulary. Pt goes [place] in June. OCT per Dr. Rogers. Blurry [...] vein occlusion, left eye, with macular edema 4-6 weeks IVL OS OCT OU DIL [...] on IVLq4w. Cont IVLq4w with Dr. Betancourt ([place]) in 1mo (last inj 05/31/16). F/u Dr. Rogers prn when pt returns to [place]. 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, left eye, with macular edema Impression/Plan - Joseph rashawnnt will be returning from [facility] February 2017. Patient to sign medical release [...] again. IVL OS. Pt goes back up [place] June 13, 2016, will send records at that time for pt to have re-eval and tx [place]. IVL x 1 then tx records to [...] - Pt leaving next to go [place], pt advised to see Dr. Wolf hall within 1 month to continue tx of injections up [place]. WIll sign records release today Related to [...] retinal vein occlusion, left eye Return in 2-3 days w shreya Rogres for Retinal Consult. Related to Tributary (branch) [...]
== END 2024-04-23 09:10 | disposition home or self-care (01) ==
LOC: HO.HOSX 09:09
PROVIDERS: Visit Provider Physician Assistant
DX: S72.401A Unspecified fracture of lower end of right femur, initial encounter for closed fracture (principal)
CPT/HCPCS: 99212

== ENCOUNTER 2024-04-23 11:31 | Outpatient (AMB) | payer MEDICARE, SELFPAY ==
--- NOTE | 2024-04-23 11:33 | A.OFFVIS_ITS ---
Intake Visit Reasons: PO - right femur ORIF 04/09/24 NE Intake Note: Kaylah is a 88 year old female who presents today for a post op appointment for her right femur ORIF 04/09/24 NE. Patient reports she is havign little to no pain at the moment she is having a lot of pain in her left leg not so much her right. Allergies azithromycin Allergy (Verified 04/23/24 11:37) Unknown HPI HPI PO - right femur ORIF 04/09/24 NE: Details: Ms. Mccabe is an 88-year-old female who present to the office today for followup s/p right femur ORIF that was performed on 04/09/[address] Calderon. Patient is overall doing well. She has been nonweightbearing on the right lower extremity. She is in a rehab facility and states that she has been working with physical therapy. [facility] Medical History (Updated 04/19/24 @ 00:01 by Jen Kim) Hiatal hernia Anxiety HLD (hyperlipidemia) HTN (hypertension) Social History Household Members: None Household Members Other:: lives downstairs from grandson Housing: Other Housing Other:: 2 family Do you presently have visiting nurse or other home services: No Patient Tobacco Use Status: Never used Tobacco service: No Review of Systems Const All systems reviewed & are unremarkable except as noted in HPI and below Physical Exam Const General: cooperative, healthy appearing and no acute distress Resp Effort & Inspection: normal respiratory effort and able to speak in complete sentences Cardio Rate: regular rate Peripheral pulses: Peripheral pulses 2+ throughout Skin Lesions: no lesions Rashes: no rashes Extrem Other: Right lower extremity incision site is clean dry and intact. [place] intact. No surrounding erythema or drainage. No signs of infection. NVI. Just proximal to the ankle on the anterior aspect of the tibia there is a small quarter-sized area where a superficial abrasion once was. There is granulation tissue filling in this area. No surrounding erythema or drainage. No signs of infection at this time. Assessment & Plan Assessment & Plan (1) Fracture of distal end of right femur: Code(s): S72.401A - Unspecified fracture of lower end of right femur, initial encounter for closed fracture Category: Medical Plan Ms. Mccabe is an 88-year-old female who present to the office today for followup s/p right femur ORIF that was performed on 04/09/[address] Calderon. Patient is overall doing well. She has been nonweightbearing on the right lower extremity. She is in a rehab facility and states that she has been working with physical therapy. While in the office today, rohith were removed. Steri-Strips were applied. Patient will remain nonweightbearing on the right lower extremity for a total of 12 weeks postoperatively. I did provide instructions for physical therapy to work on glute core and quad strengthening as well as gait training. I do not feel this with the patient is able to safely navigate stairs at this time. She reports that her apartment is on the 2nd floor. I do think the patient would benefit from additional rehab services. Additionally, the patient should continue wound care on the superficial abrasion just proximal to the ankle and monitor for any signs of infection. Patient will follow-up in 4 weeks, sooner if needed with x-rays. Coding Level of Care Code Global (51735) Diagnoses Fracture of distal end of right femur S72.401A
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
== END 2024-04-23 12:08 | disposition home or self-care (01) ==
PROVIDERS: PCP Family Medicine; Visit Provider Physician Assistant
DX: S72.401A Unspecified fracture of lower end of right femur, initial encounter for closed fracture (principal)
CPT/HCPCS: 99024

== ENCOUNTER 2024-05-21 13:11 | Outpatient (AMB) | payer MEDICARE, SELFPAY ==
--- NOTE | 2024-05-21 13:36 | A.OFFVIS_ITS ---
Intake Visit Reasons: PO - right femur ORIF 04/09/24 NE Intake Note: Kaylah is a 88 year old female who presents today for a post op appointment for her right femur ORIF 04/09/24 NE. Patient reports she is doing well, having mild to no pain. Allergies azithromycin Allergy (Verified 05/21/24 13:37) Unknown HPI HPI PO - right femur ORIF 04/09/24 NE: Details: Ms. Mccabe is a pleasant 88-year-old female who presents to the office today status post right femur ORIF performed on 04/09/[address] Calderon. She has continued to be nonweightbearing in the right lower extremity. She is working with physical therapy. She presents today in a wheelchair. Overall the patient is doing very well. [facility] Medical History (Updated 04/19/24 @ 00:01 by Jen Kim) Hiatal hernia Anxiety HLD (hyperlipidemia) HTN (hypertension) Social History Household Members: None Household Members Other:: lives downstairs from grandson Housing: Other Housing Other:: 2 family Do you presently have visiting nurse or other home services: No Patient Tobacco Use Status: Never used Tobacco service: No Review of Systems Const All systems reviewed & are unremarkable except as noted in HPI and below Physical Exam Const General: cooperative, healthy appearing and no acute distress Resp Effort & Inspection: normal respiratory effort and able to speak in complete sentences Cardio Rate: regular rate Peripheral pulses: Peripheral pulses 2+ throughout Skin Lesions: no lesions Rashes: no rashes Extrem Other: Right lower extremity incision site is clean dry and intact. No surrounding erythema or drainage. No signs of infection. Able to perform SLR. NVI. Just proximal to the ankle on the anterior aspect of the tibia there is a small quarter-sized area where a superficial abrasion once was. There is granulation tissue filling in this area. No surrounding erythema or drainage. No signs of infection at this time. Wound care following. Assessment & Plan Assessment & Plan (1) Fracture of distal end of right femur: Code(s): S72.401A - Unspecified fracture of lower end of right femur, initial encounter for closed fracture Category: Medical Plan Ms. Mccabe is a pleasant 88-year-old female who presents to the office today status post right femur ORIF performed on 04/09/[address] Calderon. She has continued to be nonweightbearing in the right lower extremity. She is working with physical therapy. She presents today in a wheelchair. Overall the patient is doing very well. While the office today we discussed continuing nonweightbearing status for a total of 3 months status post surgery. X-rays were obtained and while the office today of the right femur which show intact orthopedic hardware with routine healing. I would like to see her back in 6 weeks with repeat x-rays, sooner if needed. She can continue working with physical therapy on gentle range of motion of the knee and hip. They can assist with gait training while nonweightbearing on the right lower extremity. Follow up in 6 weeks, sooner if needed. Orders: Orders XR femur RT 2V Today S72.401A - Unspecified fracture of lower end of right femur, initial encounter for closed fracture Coding Level of Care Code Global (96737) Diagnoses Fracture of distal end of right femur S72.401A
== END 2024-05-21 14:01 | disposition home or self-care (01) ==
LOC: HO.HOS 13:12
PROVIDERS: PCP Family Medicine; Visit Provider Physician Assistant
DX: S72.401A Unspecified fracture of lower end of right femur, initial encounter for closed fracture (principal)
CPT/HCPCS: 99024